=== PATIENT | male | born 1975 | race Two or more races ===

== ENCOUNTER 2018-01-17 20:15 | Emergency (ER) | payer OTHER ==
[~2018-01-17] VITALS: Ht 185.4 cm; Wt 100.0 kg
[2018-01-17 21:11] VITALS: BP 155/85
== END 2018-01-17 21:12 | disposition home or self-care (01) ==
LOC: ED 21:06
DX: S80.12XA Contusion of left lower leg, initial encounter (principal); W50.0XXA Accidental hit or strike by another person, initial encounter; Y93.72 Activity, wrestling; Y92.89 Other specified places as the place of occurrence of the external cause; Y99.8 Other external cause status
CPT/HCPCS: 99284